=== PATIENT | male | born 1980 | race Caucasian/White ===

== ENCOUNTER 2016-12-24 15:32 | Emergency (ER) | payer OTHER ==
[~2016-12-24] VITALS: Ht 177.8 cm; Wt 104.8 kg
[2016-12-24 18:13] VITALS: BP 139/66
== END 2016-12-24 18:13 | disposition home or self-care (01) ==
LOC: ED 15:32
DX: H10.212 Acute toxic conjunctivitis, left eye (principal)
CPT/HCPCS: J7030; V2632